=== PATIENT | female | born 1995 | race Caucasian/White ===

== ENCOUNTER 2017-08-30 18:55 | Emergency (ER) | payer MEDICAID ==
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
== END 2017-08-30 20:10 | disposition home or self-care (01) ==
LOC: ER 18:55
DX: S09.90XA Unspecified injury of head, initial encounter (principal); R11.0 Nausea; R42 Dizziness and giddiness; W51.XXXA Accidental striking against or bumped into by another person, initial encounter; Y92.009 Unspecified place in unspecified non-institutional (private) residence as the place of occurrence of the external cause
CPT/HCPCS: 70450; 99283